=== PATIENT | male | born 1990 | race Caucasian/White ===

== ENCOUNTER → 2016-09-05 | Outpatient (CLI) | payer BC | LOC: BMCIMAGING 16:53 | PROVIDERS: ATTEND Internal Medicine | DX: R05 Cough (principal) ==

== ENCOUNTER 2017-04-23 18:27 | Emergency (ER) | payer BC, OTHER ==
[2017-04-23] MEDS ORDERED: LET GEL TOPICAL 1 EA SYR TP ONE (18:47)
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
[2017-04-23] MEDS ORDERED: TDAP ADULT 0.5 ML INJ (BOOSTRIX) IM ONE (18:51)
[2017-04-23] MEDS ORDERED: ONDANSETRON DISINTEGRATING 4 MG TAB ONE (19:10)
[2017-04-23] MEDS ORDERED: ONDANSETRON DISINTEGRATING 4 MG TAB PO ONE (19:12)
[2017-04-23 20:27] VITALS: RESP 16; TEMP 97.9
[2017-04-23] MEDS ORDERED: oxyCODONE IR 5 MG TAB PO PRN (20:40)
[2017-04-23] MEDS ORDERED: HYDROmorphONE/DILAUDID 1 MG/ML INJ IVP PRN (20:40)
[2017-04-23] MEDS ORDERED: ACETAMINOPHEN 325 MG TAB PO PRN (20:40)
[2017-04-23] MEDS ORDERED: ONDANSETRON DISINTEGRATING 4 MG TAB PO PRN (20:40)
[2017-04-23] MEDS ORDERED: ONDANSETRON 4 MG/2 ML VIAL IVP PRN (20:40)
[2017-04-23] MEDS ORDERED: NS 1,000 ML IV SCH (20:45)
[2017-04-23 20:58] LABS: PLATELET COUNT 376 10^3/uL (150-400)
[2017-04-23] MEDS ORDERED: NS 1,000 ML IV ONE (23:45)
[2017-04-23] MEDS ORDERED: IOPAMIDOL (ISOVUE-300) 100 ML BTL ONE (23:56)
[2017-04-24] MEDS ORDERED: NS 1,000 ML IV ONE (00:22)
[2017-04-24 00:38] VITALS: O2SAT 98
[2017-04-24 00:57] LABS: PLATELET COUNT 293 10^3/uL (150-400)
[2017-04-24 01:56] VITALS: BP 128/82; PULSE 97
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
== END 2017-04-24 01:56 | disposition short-term general hospital (02) ==
LOC: UNDOADMOB 20:18
DX: S06.6X0A Traumatic subarachnoid hemorrhage without loss of consciousness, initial encounter (principal); V18.0XXA Pedal cycle driver injured in noncollision transport accident in nontraffic accident, initial encounter
CPT/HCPCS: J2405; Q9967

== ENCOUNTER → 2018-09-14 | Outpatient (CLI) | payer OTHER | LOC: FIMAGING 14:58 | PROVIDERS: ATTEND Internal Medicine | DX: R05 Cough (principal) ==